=== PATIENT | male | born 1970 | race Caucasian/White ===

== ENCOUNTER 2017-02-10 14:40 | Emergency (ER) | payer SELFPAY ==
[~2017-02-10] VITALS: Ht 177.8 cm; Wt 88.6 kg
[~2017-02-10 14:40] MED LIST: ALEVE 220MG220 MG PO; CHOLESTEROL MED; IBU-2200 MG PO; LORTAB 5/500 501 TAB PO; PROSTATE MED
[2017-02-10 14:59] LABS: HEMATOCRIT 45.5 % (42.0-52.0); HEMOGLOBIN 15.8 g/dl (13.5-18.0); MEAN CELL VOLUME 93 fl (80.0-100.0); MEAN CORPUSCULAR HEMOGLOBIN 32 pg (27.0-31.0); MEAN CORPUSCULAR HGB CONC 35 g/dl (33.0-37.0); MEAN PLATELET VOLUME 10.8 fl (7.4-10.4); PLATELET COUNT 348 K/mm3 (130-400); RED BLOOD COUNT 4.92 M/mm3 (4.20-5.60); REDCELL DISTRIBUTION WIDTH-CV 12.7 % (11.5-14.5); WHITE BLOOD COUNT 17.1 K/mm3 (4.8-10.8)
[2017-02-10 15:01] LABS: ADD PATHOLOGY DIFF REVIEW NO
[2017-02-10 15:02] LABS: INR 1.1 (0.8-3.0); PROTHROMBIN TIME 12.4 SECONDS (9.7-12.8)
[2017-02-10 15:04] LABS: PARTIAL THROMBOPLASTIN TIME 32.5 SECONDS (26.0-37.0)
[2017-02-10 15:07] LABS: ADJUSTED CALCIUM 8.5 mg/dL (8.4-10.2); ALANINE AMINOTRANSFERASE 307 U/L (21-72); ALBUMIN 3.9 gm/dL (3.5-5.0); ALKALINE PHOSPHATASE 62 U/L (50-136); ANION GAP 20 mmol/L (7-16); BILIRUBIN,TOTAL 0.8 mg/dL (0.0-1.0); BLOOD UREA NITROGEN 9 mg/dL (9-20); CALCIUM 8.4 mg/dL (8.4-10.2); CARBON DIOXIDE 17 mmol/L (22-30); CHLORIDE 104 mmol/L (98-107); CREATINE KINASE 86 U/L (55-170); CREATININE, serum 1.18 mg/dL (0.66-1.25); GLUCOSE 193 mg/dL (74-106); SODIUM 141 mmol/L (137-145)
[2017-02-10 15:15] LABS: BAND 9 % (0-10); BASOPHIL 1 % (0-2); EOSINOPHIL 1 % (0-4); NEUTROPHILS 40 % (42.0-75.2); PLATELET ESTIMATE NORMAL (NORMAL); TOTAL CELLS COUNTED 100
[2017-02-10 15:19] LABS: B-TYPE NATRIURETIC PEPTIDE 1210 pg/mL (0-125)
[2017-02-10 15:26] LABS: TROPONIN-I < 0.012 ng/mL (0.000-0.034)
[2017-02-10 15:57] VITALS: BP 104/74; PULSE 87
== END 2017-02-10 15:35 | disposition short-term general hospital (02) ==
LOC: COL.ER 14:40
PROVIDERS: Emergency Medicine
DX: I46.9 Cardiac arrest, cause unspecified (principal); I10 Essential (primary) hypertension; F17.210 Nicotine dependence, cigarettes, uncomplicated; E78.5 Hyperlipidemia, unspecified
CPT/HCPCS: J0282; J1644; J7060

== ENCOUNTER 2018-01-08 14:37 | Emergency (ER) | payer MEDICAID ==
[~2018-01-08] VITALS: Ht 177.8 cm; Wt 96.6 kg
[2018-01-08 15:14] LABS: COLLECTION METHOD CLEAN CATCH
[2018-01-08 15:16] LABS: BASO # 0.1 (0.0-0.2); BASO % 0.6 % (0.0-2.0); EOS # 0.2 (0.0-0.7); EOS % 1.8 % (0-4.0); GRAN # 5.9 (1.4-6.5); GRAN % 71.7 % (42.2-75.2); HEMATOCRIT 43.1 % (42.0-52.0); HEMOGLOBIN 15.4 g/dl (13.5-18.0); LYMPH # 1.5 (1.2-3.4); LYMPH % 18.9 % (20.0-51.0); MEAN CELL VOLUME 88 fl (80.0-100.0); MEAN CORPUSCULAR HEMOGLOBIN 31 pg (27.0-31.0); MEAN CORPUSCULAR HGB CONC 36 g/dl (33.0-37.0); MEAN PLATELET VOLUME 10.7 fl (7.4-10.4); MONO # 0.6 (0.1-0.6); MONO % 6.9 % (1.7-9.3); PLATELET COUNT 242 K/mm3 (130-400); RED BLOOD COUNT 4.91 M/mm3 (4.20-5.60); REDCELL DISTRIBUTION WIDTH-CV 12.4 % (11.5-14.5)
[2018-01-08 15:19] LABS: PH 6 (5-8); SQUAMOUS EPITHELIAL None Seen /hpf; URINE APPEARANCE Clear; URINE BACTERIA None Seen /hpf; URINE BILIRUBIN Negative (NEGATIVE); URINE BLOOD Negative (NEGATIVE); URINE COLOR Yellow; URINE GLUCOSE Negative (NEGATIVE); URINE KETONE Negative (NEGATIVE); URINE LEUKOCYTE ESTERASE Negative (NEGATIVE); URINE NITRATE Negative (NEGATIVE); URINE PROTEIN(semi-quant) Negative (NEGATIVE); URINE RBC 0-2 /hpf; URINE UROBILINOGEN Negative (NEGATIVE)
[2018-01-08 15:26] LABS: ALANINE AMINOTRANSFERASE 51 U/L (21-72); ALBUMIN 4.4 gm/dL (3.5-5.0); ALKALINE PHOSPHATASE 60 U/L (50-136); ANION GAP 14 mmol/L (7-16); AST,SGOT 22 U/L (15-37); BILIRUBIN,TOTAL 0.5 mg/dL (0.0-1.0); BLOOD UREA NITROGEN 9 mg/dL (9-20); CALCIUM 9.2 mg/dL (8.4-10.2); CARBON DIOXIDE 26 mmol/L (22-30); CHLORIDE 104 mmol/L (98-107); CREATININE, serum 1.11 mg/dL (0.66-1.25); GLUCOSE 100 mg/dL (74-106); SODIUM 144 mmol/L (137-145); TOTAL PROTEIN 8.7 gm/dL (6.4-8.2)
[2018-01-08 15:27] LABS: TRICYCLIC ANTIDEPRESS URINE NEGATIVE
[2018-01-08 15:27] LABS: ALCOHOL(ethanol),MEDICAL < 10 mg/dL
[2018-01-08] MEDS ORDERED: ASPIRIN 81M81 MG/TA2 PO (19:03)
[2018-01-08] MEDS ORDERED: QBRELIS1 MG/1 ML PO (19:03)
[2018-01-08] MEDS ORDERED: LIPITOR 10MG10 MG PO (19:03)
[2018-01-08 23:15] VITALS: BP 145/86; PULSE 65; TEMP 98
== END 2018-01-08 23:20 ==
LOC: COL.ER 14:37
PROVIDERS: Family Medicine
DX: F32.9 Major depressive disorder, single episode, unspecified (principal); F91.8 Other conduct disorders; I25.10 Atherosclerotic heart disease of native coronary artery without angina pectoris; I25.2 Old myocardial infarction; Z95.810 Presence of automatic (implantable) cardiac defibrillator; Z79.82 Long term (current) use of aspirin

== ENCOUNTER 2018-06-06 19:51 | Inpatient (IN) | payer MEDICAID ==
[~2018-06-06] VITALS: Ht 177.8 cm; Wt 95.9 kg
[~2018-06-06 19:51] MED LIST changes: +ASPIRIN 81M81 MG/TA2 PO; +LIPITOR 10MG10 MG PO; +QBRELIS1 MG/1 ML PO
[2018-06-06] MEDS ORDERED: ZOLOFT 50MG50 MG PO (20:01)
[2018-06-06 20:10] LABS: BASO % 0.5 % (0.0-2.0); EOS # 0.3 (0.0-0.7); EOS % 3.8 % (0-4.0); GRAN # 4.8 (1.4-6.5); HEMATOCRIT 41.3 % (42.0-52.0); HEMOGLOBIN 14.6 g/dl (13.5-18.0); LYMPH # 2.4 (1.2-3.4); LYMPH % 29.3 % (20.0-51.0); MEAN CELL VOLUME 90 fl (80.0-100.0); MEAN CORPUSCULAR HEMOGLOBIN 32 pg (27.0-31.0); MEAN CORPUSCULAR HGB CONC 35 g/dl (33.0-37.0); MEAN PLATELET VOLUME 10.6 fl (7.4-10.4); MONO # 0.6 (0.1-0.6); MONO % 7.3 % (1.7-9.3); PLATELET COUNT 231 K/mm3 (130-400); REDCELL DISTRIBUTION WIDTH-CV 12.7 % (11.5-14.5)
[2018-06-06 20:15] LABS: INR 0.9 (0.8-3.0); PROTHROMBIN TIME 10.6 SECONDS (9.7-12.8)
[2018-06-06 20:18] LABS: PARTIAL THROMBOPLASTIN TIME 35.4 SECONDS (26.0-37.0)
[2018-06-06 20:21] LABS: ALANINE AMINOTRANSFERASE 53 U/L (21-72); ALKALINE PHOSPHATASE 67 U/L (50-136); ANION GAP 12 mmol/L (7-16); AST,SGOT 32 U/L (15-37); BILIRUBIN,TOTAL 0.4 mg/dL (0.0-1.0); BLOOD UREA NITROGEN 9 mg/dL (9-20); CARBON DIOXIDE 25 mmol/L (22-30); CHLORIDE 103 mmol/L (98-107); CREATININE, serum 0.87 mg/dL (0.66-1.25); GLUCOSE 112 mg/dL (74-106); POTASSIUM 3.6 mmol/L (3.4-5.0); SODIUM 140 mmol/L (137-145); TOTAL PROTEIN 7.5 gm/dL (6.4-8.2)
[2018-06-06 20:39] LABS: TROPONIN-I < 0.012 ng/mL (0.000-0.034)
[2018-06-06] MEDS ORDERED: REMERON 15M15 MG/TA1 PO (21:13)
[2018-06-06] MEDS ORDERED: COREG 6.256.25 MG/TA PO (21:14)
[2018-06-06] MEDS ORDERED: PRINIVIL40 MG PO (21:15)
[2018-06-06] MEDS ORDERED: PLAVIX 75MG TAB75 MG PO (21:16)
[2018-06-07] VITALS (7 sets, daily range): BP systolic 113–139; BP diastolic 67–84; PULSE 59–92; TEMP 98.1–98.5
[2018-06-07 00:58] LABS: PROTHROMBIN TIME 11.3 SECONDS (9.7-12.8)
[2018-06-07 05:00] LABS: BASO % 0.6 % (0.0-2.0); EOS # 0.3 (0.0-0.7); EOS % 4.6 % (0-4.0); GRAN # 3.1 (1.4-6.5); GRAN % 47.1 % (42.2-75.2); HEMATOCRIT 38.6 % (42.0-52.0); HEMOGLOBIN 13.4 g/dl (13.5-18.0); LYMPH # 2.7 (1.2-3.4); LYMPH % 41.1 % (20.0-51.0); MEAN CELL VOLUME 92 fl (80.0-100.0); MEAN CORPUSCULAR HEMOGLOBIN 32 pg (27.0-31.0); MEAN CORPUSCULAR HGB CONC 35 g/dl (33.0-37.0); MEAN PLATELET VOLUME 10.8 fl (7.4-10.4); MONO # 0.4 (0.1-0.6); MONO % 6.3 % (1.7-9.3); PLATELET COUNT 185 K/mm3 (130-400); RED BLOOD COUNT 4.22 M/mm3 (4.20-5.60); REDCELL DISTRIBUTION WIDTH-CV 12.8 % (11.5-14.5)
[2018-06-07 05:10] LABS: ALANINE AMINOTRANSFERASE 47 U/L (21-72); ALBUMIN 3.5 gm/dL (3.5-5.0); ALKALINE PHOSPHATASE 58 U/L (50-136); ANION GAP 10 mmol/L (7-16); AST,SGOT 24 U/L (15-37); BILIRUBIN,TOTAL 0.3 mg/dL (0.0-1.0); BLOOD UREA NITROGEN 8 mg/dL (9-20); CALCIUM 8.4 mg/dL (8.4-10.2); CARBON DIOXIDE 24 mmol/L (22-30); CHLORIDE 107 mmol/L (98-107); CHOLESTEROL 139 mg/dL (120-200); CHOLESTEROL RISK RATIO 5.7; CREATININE, serum 0.82 mg/dL (0.66-1.25); GLUCOSE 118 mg/dL (74-106); HDL CHOLESTEROL 24 mg/dL; LDL CHOLESTEROL 79 mg/dL; POTASSIUM 3.4 mmol/L (3.4-5.0); SODIUM 140 mmol/L (137-145); TOTAL PROTEIN 6.6 gm/dL (6.4-8.2); TRIGLYCERIDE 179 mg/dL
[2018-06-07 05:22] LABS: TROPONIN-I < 0.012 ng/mL (0.000-0.034)
[2018-06-07] MEDS ORDERED: ASPIRIN 32325 MG/TAB PO (12:49)
== END 2018-06-07 14:17 | disposition short-term general hospital (02) | DRG 311 ==
LOC: COL.ER 19:51 → MEDICAL 21:18 → COL.ER 21:18 → MEDICAL 21:18
PROVIDERS: Emergency Medicine; Nurse Practitioner Family
DX: I20.0 Unstable angina (principal); I50.22 Chronic systolic (congestive) heart failure; I11.0 Hypertensive heart disease with heart failure; I25.5 Ischemic cardiomyopathy; E78.5 Hyperlipidemia, unspecified; Z95.810 Presence of automatic (implantable) cardiac defibrillator; Z87.891 Personal history of nicotine dependence; Z95.5 Presence of coronary angioplasty implant and graft; E87.6 Hypokalemia; E83.42 Hypomagnesemia
CPT/HCPCS: 99223-AI; A9502; G0378; J1644; J2785; J3475; J7030

== ENCOUNTER 2018-06-28 14:05 | Emergency (ER) | payer MEDICAID ==
[~2018-06-28] VITALS: Ht 177.8 cm; Wt 93.2 kg
[~2018-06-28 14:05] MED LIST changes: +ASPIRIN 32325 MG/TAB PO; +COREG 6.256.25 MG/TA PO; +PLAVIX 75MG TAB75 MG PO; +PRINIVIL40 MG PO; +REMERON 15M15 MG/TA1 PO; +ZOLOFT 50MG50 MG PO
[2018-06-28 14:15] VITALS: TEMP 98.7
[2018-06-28 14:59] LABS: TRICYCLIC ANTIDEPRESS URINE NEGATIVE
[2018-06-28 15:26] LABS: BASO % 0.6 % (0.0-2.0); EOS # 0.3 (0.0-0.7); EOS % 3.7 % (0-4.0); GRAN # 4.3 (1.4-6.5); GRAN % 63.3 % (42.2-75.2); HEMATOCRIT 41.7 % (42.0-52.0); HEMOGLOBIN 14.8 g/dl (13.5-18.0); LYMPH # 1.8 (1.2-3.4); LYMPH % 25.7 % (20.0-51.0); MEAN CELL VOLUME 89 fl (80.0-100.0); MEAN CORPUSCULAR HEMOGLOBIN 32 pg (27.0-31.0); MEAN CORPUSCULAR HGB CONC 36 g/dl (33.0-37.0); MEAN PLATELET VOLUME 10.3 fl (7.4-10.4); MONO # 0.5 (0.1-0.6); MONO % 6.6 % (1.7-9.3); PLATELET COUNT 211 K/mm3 (130-400); RED BLOOD COUNT 4.68 M/mm3 (4.20-5.60); REDCELL DISTRIBUTION WIDTH-CV 12.4 % (11.5-14.5)
[2018-06-28 15:39] LABS: ALANINE AMINOTRANSFERASE 37 U/L (21-72); ALBUMIN 4.1 gm/dL (3.5-5.0); ALKALINE PHOSPHATASE 61 U/L (50-136); ANION GAP 8 mmol/L (7-16); AST,SGOT 18 U/L (15-37); BILIRUBIN,TOTAL 0.5 mg/dL (0.0-1.0); BLOOD UREA NITROGEN 11 mg/dL (9-20); CARBON DIOXIDE 27 mmol/L (22-30); CHLORIDE 101 mmol/L (98-107); CREATININE, serum 0.97 mg/dL (0.66-1.25); GLUCOSE 104 mg/dL (74-106); POTASSIUM 3.9 mmol/L (3.4-5.0); SODIUM 136 mmol/L (137-145); TOTAL PROTEIN 7.5 gm/dL (6.4-8.2)
[2018-06-28 15:45] LABS: ACETAMINOPHEN < 10 ug/mL (10-30); ALCOHOL(ethanol),MEDICAL < 10 mg/dL; SALICYLATE < 1.0 mg/dL
[2018-06-28] MEDS ORDERED: ZESTRIL40 MG PO (16:11)
[2018-06-28] MEDS ORDERED: LIPITOR 80MG80 MG PO (16:11)
[2018-06-28] MEDS ORDERED: PLAVIX 75MG TAB75 MG PO (16:11)
[2018-06-28] MEDS ORDERED: COREG 6.256.25 MG/TA PO (16:12)
[2018-06-28] MEDS ORDERED: ASPIRIN E.C. 8181 MG PO (16:13)
[2018-06-28] MEDS ORDERED: NITROSTAT0.4 MG/TAB SL (16:13)
[2018-06-28] MEDS ORDERED: REMERON 15M15 MG/TA1 PO (16:14)
[2018-06-28 21:15] VITALS: BP 140/85; PULSE 64
== END 2018-06-28 21:15 | disposition short-term general hospital (02) ==
LOC: COL.ER 14:05
PROVIDERS: Nurse Practitioner
DX: F32.9 Major depressive disorder, single episode, unspecified (principal); R45.851 Suicidal ideations; I25.2 Old myocardial infarction; Z87.891 Personal history of nicotine dependence; Z79.82 Long term (current) use of aspirin; Z95.0 Presence of cardiac pacemaker; Z95.5 Presence of coronary angioplasty implant and graft

== ENCOUNTER → 2018-07-11 | Emergency (ER) | payer MEDICAID ==
[~2018-07-11] VITALS: Ht 177.8 cm; Wt 91.4 kg
[~2018-07-11] MED LIST changes: +ASPIRIN E.C. 8181 MG PO; +LIPITOR 80MG80 MG PO; +NITROSTAT0.4 MG/TAB SL; +ZESTRIL40 MG PO; +ZOLOFT 100MG100 MG PO
[2018-07-11 17:43] LABS: BASO # 0.1 (0.0-0.2); BASO % 0.5 % (0.0-2.0); EOS # 0.3 (0.0-0.7); GRAN # 6.4 (1.4-6.5); HEMATOCRIT 44.8 % (42.0-52.0); HEMOGLOBIN 15.8 g/dl (13.5-18.0); LYMPH # 2.2 (1.2-3.4); LYMPH % 23.1 % (20.0-51.0); MEAN CELL VOLUME 89 fl (80.0-100.0); MEAN CORPUSCULAR HEMOGLOBIN 31 pg (27.0-31.0); MEAN CORPUSCULAR HGB CONC 35 g/dl (33.0-37.0); MEAN PLATELET VOLUME 10.3 fl (7.4-10.4); MONO # 0.7 (0.1-0.6); PLATELET COUNT 242 K/mm3 (130-400); RED BLOOD COUNT 5.06 M/mm3 (4.20-5.60); REDCELL DISTRIBUTION WIDTH-CV 12.3 % (11.5-14.5)
[2018-07-11 17:53] LABS: ALANINE AMINOTRANSFERASE 81 U/L (21-72); ALBUMIN 4.6 gm/dL (3.5-5.0); ALKALINE PHOSPHATASE 75 U/L (50-136); ANION GAP 10 mmol/L (7-16); AST,SGOT 42 U/L (15-37); BILIRUBIN,TOTAL 0.6 mg/dL (0.0-1.0); BLOOD UREA NITROGEN 15 mg/dL (9-20); CALCIUM 9.1 mg/dL (8.4-10.2); CARBON DIOXIDE 25 mmol/L (22-30); CHLORIDE 105 mmol/L (98-107); CREATININE, serum 1.01 mg/dL (0.66-1.25); GLUCOSE 86 mg/dL (74-106); SODIUM 140 mmol/L (137-145); TOTAL PROTEIN 8.3 gm/dL (6.4-8.2)
[2018-07-11 17:54] LABS: COLLECTION METHOD CLEAN CATCH
[2018-07-11 17:59] LABS: MUCOUS Present /lpf; PH 5 (5-8); SQUAMOUS EPITHELIAL 0-2 /hpf; URINE APPEARANCE Clear; URINE BACTERIA None Seen /hpf; URINE BILIRUBIN Negative (NEGATIVE); URINE BLOOD Negative (NEGATIVE); URINE COLOR Yellow; URINE GLUCOSE Negative (NEGATIVE); URINE KETONE Negative (NEGATIVE); URINE LEUKOCYTE ESTERASE Negative (NEGATIVE); URINE NITRATE Negative (NEGATIVE); URINE PROTEIN(semi-quant) Negative (NEGATIVE); URINE RBC None Seen /hpf; URINE UROBILINOGEN Negative (NEGATIVE)
[2018-07-11 18:03] LABS: ACETAMINOPHEN < 10 ug/mL (10-30); ALCOHOL(ethanol),MEDICAL < 10 mg/dL; SALICYLATE < 1.0 mg/dL
[2018-07-11 18:12] LABS: TRICYCLIC ANTIDEPRESS URINE NEGATIVE
[2018-07-11 23:23] VITALS: BP 108/67; PULSE 66; TEMP 99.1
== END ==
LOC: COL.ER 17:05
PROVIDERS: Family Medicine
DX: F32.9 Major depressive disorder, single episode, unspecified (principal); I25.10 Atherosclerotic heart disease of native coronary artery without angina pectoris; Z79.02 Long term (current) use of antithrombotics/antiplatelets; Z79.82 Long term (current) use of aspirin

== ENCOUNTER 2018-09-22 15:56 | Emergency (ER) | payer MEDICAID ==
[~2018-09-22] VITALS: Ht 177.8 cm; Wt 87.3 kg
[2018-09-22 16:30] LABS: COLLECTION METHOD CLEAN CATCH
[2018-09-22 16:52] LABS: PH 7 (5-8); SQUAMOUS EPITHELIAL 0-2 /hpf; URINE APPEARANCE Clear; URINE BACTERIA None Seen /hpf; URINE BILIRUBIN Negative (NEGATIVE); URINE BLOOD Negative (NEGATIVE); URINE COLOR Yellow; URINE GLUCOSE Negative (NEGATIVE); URINE KETONE Negative (NEGATIVE); URINE LEUKOCYTE ESTERASE Negative (NEGATIVE); URINE NITRATE Negative (NEGATIVE); URINE PROTEIN(semi-quant) Negative (NEGATIVE); URINE RBC 0-2 /hpf; URINE UROBILINOGEN Negative (NEGATIVE)
[2018-09-22 17:04] LABS: BASO # 0.1 (0.0-0.2); BASO % 0.6 % (0.0-2.0); EOS # 0.4 (0.0-0.7); EOS % 4.9 % (0-4.0); GRAN % 65.1 % (42.2-75.2); HEMATOCRIT 43.2 % (42.0-52.0); HEMOGLOBIN 14.9 g/dl (13.5-18.0); LYMPH # 1.8 (1.2-3.4); LYMPH % 23.1 % (20.0-51.0); MEAN CELL VOLUME 91 fl (80.0-100.0); MEAN CORPUSCULAR HEMOGLOBIN 31 pg (27.0-31.0); MEAN CORPUSCULAR HGB CONC 35 g/dl (33.0-37.0); MEAN PLATELET VOLUME 11.3 fl (7.4-10.4); MONO # 0.5 (0.1-0.6); PLATELET COUNT 187 K/mm3 (130-400); RED BLOOD COUNT 4.76 M/mm3 (4.20-5.60); REDCELL DISTRIBUTION WIDTH-CV 13.2 % (11.5-14.5)
[2018-09-22 17:05] LABS: TRICYCLIC ANTIDEPRESS URINE NEGATIVE
[2018-09-22 17:11] LABS: ALANINE AMINOTRANSFERASE 43 U/L (21-72); ALBUMIN 4.1 gm/dL (3.5-5.0); ALKALINE PHOSPHATASE 75 U/L (50-136); ANION GAP 5 mmol/L (7-16); AST,SGOT 24 U/L (15-37); BILIRUBIN,TOTAL 0.5 mg/dL (0.0-1.0); BLOOD UREA NITROGEN 8 mg/dL (9-20); CALCIUM 9.3 mg/dL (8.4-10.2); CARBON DIOXIDE 29 mmol/L (22-30); CHLORIDE 108 mmol/L (98-107); CREATININE, serum 0.94 mg/dL (0.66-1.25); GLUCOSE 105 mg/dL (74-106); POTASSIUM 3.8 mmol/L (3.4-5.0); SODIUM 141 mmol/L (137-145); TOTAL PROTEIN 7.3 gm/dL (6.4-8.2)
[2018-09-22 17:14] LABS: ACETAMINOPHEN < 10 ug/mL (10-30); ALCOHOL(ethanol),MEDICAL < 10 mg/dL; SALICYLATE < 1.0 mg/dL
[2018-09-23 08:56] VITALS: BP 113/66; PULSE 61; TEMP 97.4
== END 2018-09-23 09:30 ==
LOC: COL.ER 15:56
PROVIDERS: Emergency Medicine
DX: R45.851 Suicidal ideations (principal); F32.9 Major depressive disorder, single episode, unspecified; I25.10 Atherosclerotic heart disease of native coronary artery without angina pectoris; I10 Essential (primary) hypertension; F17.210 Nicotine dependence, cigarettes, uncomplicated; F12.10 Cannabis abuse, uncomplicated; Z95.0 Presence of cardiac pacemaker; Z95.5 Presence of coronary angioplasty implant and graft; Z79.02 Long term (current) use of antithrombotics/antiplatelets; Z79.82 Long term (current) use of aspirin

== ENCOUNTER 2018-11-18 02:00 | Emergency (ER) | payer MEDICAID | END 2018-11-18 18:26 | LOC: COL.ER 02:00 | DX: R45.851 Suicidal ideations (principal); F32.9 Major depressive disorder, single episode, unspecified; I25.10 Atherosclerotic heart disease of native coronary artery without angina pectoris; Z79.02 Long term (current) use of antithrombotics/antiplatelets; Z79.82 Long term (current) use of aspirin ==

== ENCOUNTER 2018-12-10 21:00 | Emergency (ER) | payer MEDICAID ==
[~2018-12-10] VITALS: Ht 177.8 cm; Wt 90.9 kg
[2018-12-10 21:05] VITALS: TEMP 98.6
[2018-12-10 21:31] LABS: COLLECTION METHOD CLEAN CATCH
[2018-12-10 21:37] LABS: BASO % 0.6 % (0.0-2.0); EOS # 0.3 (0.0-0.7); EOS % 4.2 % (0-4.0); GRAN % 60.5 % (42.2-75.2); HEMATOCRIT 46.4 % (42.0-52.0); HEMOGLOBIN 16.3 g/dl (13.5-18.0); LYMPH # 1.7 (1.2-3.4); LYMPH % 26.1 % (20.0-51.0); MEAN CELL VOLUME 89 fl (80.0-100.0); MEAN CORPUSCULAR HEMOGLOBIN 31 pg (27.0-31.0); MEAN CORPUSCULAR HGB CONC 35 g/dl (33.0-37.0); MEAN PLATELET VOLUME 10.3 fl (7.4-10.4); MONO # 0.6 (0.1-0.6); MONO % 8.4 % (1.7-9.3); PLATELET COUNT 225 K/mm3 (130-400); RED BLOOD COUNT 5.23 M/mm3 (4.20-5.60); REDCELL DISTRIBUTION WIDTH-CV 12.6 % (11.5-14.5)
[2018-12-10 21:39] LABS: PH 6 (5-8); SQUAMOUS EPITHELIAL None Seen /hpf; URINE APPEARANCE Clear; URINE BACTERIA None Seen /hpf; URINE BILIRUBIN Negative (NEGATIVE); URINE BLOOD Negative (NEGATIVE); URINE COLOR Yellow; URINE GLUCOSE Negative (NEGATIVE); URINE KETONE Negative (NEGATIVE); URINE LEUKOCYTE ESTERASE Negative (NEGATIVE); URINE NITRATE Negative (NEGATIVE); URINE PROTEIN(semi-quant) Negative (NEGATIVE); URINE RBC 0-2 /hpf; URINE UROBILINOGEN Negative (NEGATIVE)
[2018-12-10 21:43] LABS: ALANINE AMINOTRANSFERASE 33 U/L (21-72); ALBUMIN 4.4 gm/dL (3.5-5.0); ALKALINE PHOSPHATASE 73 U/L (50-136); ANION GAP 9 mmol/L (7-16); AST,SGOT 26 U/L (15-37); BILIRUBIN,TOTAL 0.5 mg/dL (0.0-1.0); BLOOD UREA NITROGEN 10 mg/dL (9-20); CALCIUM 9.4 mg/dL (8.4-10.2); CARBON DIOXIDE 27 mmol/L (22-30); CHLORIDE 105 mmol/L (98-107); CREATININE, serum 1.01 mg/dL (0.66-1.25); GLUCOSE 102 mg/dL (74-106); POTASSIUM 3.9 mmol/L (3.4-5.0); SODIUM 140 mmol/L (137-145); TOTAL PROTEIN 8.1 gm/dL (6.4-8.2)
[2018-12-10 21:47] LABS: ACETAMINOPHEN < 10 ug/mL (10-30); ALCOHOL(ethanol),MEDICAL < 10 mg/dL; SALICYLATE < 1.0 mg/dL
[2018-12-10 21:50] LABS: TRICYCLIC ANTIDEPRESS URINE NEGATIVE
[2018-12-11] MEDS ORDERED: ABILIFY2 MG (05:28)
[2018-12-11 12:15] VITALS: BP 120/71; PULSE 66
== END 2018-12-11 12:18 ==
LOC: COL.ER 21:00
PROVIDERS: Family Medicine
DX: F32.9 Major depressive disorder, single episode, unspecified (principal); I42.9 Cardiomyopathy, unspecified; I10 Essential (primary) hypertension; F17.210 Nicotine dependence, cigarettes, uncomplicated; Z95.0 Presence of cardiac pacemaker; Z95.5 Presence of coronary angioplasty implant and graft

== ENCOUNTER 2019-03-30 17:46 | Observation (INO) | payer MEDICAID ==
[~2019-03-30] VITALS: Ht 177.8 cm; Wt 89.5 kg
[~2019-03-30 17:46] MED LIST changes: +ABILIFY2 MG
[2019-03-30 18:17] LABS: BASO # 0.1 (0.0-0.2); BASO % 0.4 % (0.0-2.0); EOS # 0.3 (0.0-0.7); EOS % 1.8 % (0-4.0); GRAN # 11.1 (1.4-6.5); GRAN % 77.3 % (42.2-75.2); LYMPH # 1.8 (1.2-3.4); LYMPH % 12.3 % (20.0-51.0); MEAN CELL VOLUME 91 fl (80.0-100.0); MEAN CORPUSCULAR HEMOGLOBIN 32 pg (27.0-31.0); MEAN CORPUSCULAR HGB CONC 35 g/dl (33.0-37.0); MEAN PLATELET VOLUME 10.9 fl (7.4-10.4); MONO # 1.1 (0.1-0.6); MONO % 7.9 % (1.7-9.3); PLATELET COUNT 248 K/mm3 (130-400); RED BLOOD COUNT 5.05 M/mm3 (4.20-5.60); REDCELL DISTRIBUTION WIDTH-CV 13.1 % (11.5-14.5)
[2019-03-30 18:33] LABS: ALBUMIN 4.3 gm/dL (3.5-5.0); BILIRUBIN,TOTAL 0.7 mg/dL (0.0-1.0); CALCIUM 9.3 mg/dL (8.4-10.2); CREATININE, serum 0.94 (0.66-1.25); POTASSIUM 3.8 mmol/L (3.4-5.0); TOTAL PROTEIN 8.3 gm/dL (6.4-8.2)
[2019-03-30 18:57] LABS: C-REACTIVE PROTEIN 14.9 mg/dL (0.0-0.9)
[2019-03-30 21:00] VITALS: BP 145/85; PULSE 80; TEMP 99.5
[2019-03-30 21:04] VITALS: BP 145/85; PULSE 80; TEMP 99.5
--- NOTE | 2019-03-30 22:00 | NUR ---
PT ADMITTED TO [facility] 322-2 WITH ESOPHAGEAL ABCESS, DRAINED IN E.D. BY ENT SPECIALIST. SEE 5 PAGE ASSESSMENT.
--- NOTE | 2019-03-30 23:33 | NUR ---
PT GIVEN SOUP. HE HAD NO PROBLEMS EATING/SWALLOWING.
[2019-03-31 00:35] VITALS: BP 125/69; PULSE 66; TEMP 98.3
--- NOTE | 2019-03-31 04:27 | NUR ---
PT SLEEPING. NO NEEDS VOICED. UP INDEPENDENTLY TO TOILET.
[2019-03-31 05:02] VITALS: BP 127/82; PULSE 67; TEMP 97.3
[2019-03-31 08:25] VITALS: BP 141/85; PULSE 69; TEMP 97.8
--- NOTE | 2019-03-31 10:30 | NUR ---
Patient has been resting comfortably at this time. He continues to have some pain to his throat and neck. Denies nausea. Discussed eating foods that are easy to swallow. Discussed antibiotics ordered. No other changes at this time. Call light within reach.
[2019-03-31 11:39] VITALS: BP 131/71; PULSE 80; TEMP 98.3
--- NOTE | 2019-03-31 14:16 | NUR ---
SW met with patient to discuss discharge planning. Patient lives independently. His PCP was dr buenrostro but he will be switching to someone else in the same clinic he just doesn't know who. Patient also obtains medications from [facility]. Patient reports he does have a DPOA completed that he did at [facility] and his daughter Sony is listed. Patient plans on dc home today with no unmet discharge needs.
[2019-03-31 16:04] VITALS: BP 125/64; PULSE 70; TEMP 98.1
[2019-03-31] MEDS ORDERED: CLEOCIN HCL300 MG PO (16:30)
--- NOTE | 2019-03-31 17:20 | NUR ---
Patient is discharging home. Discharge instructions discussed with patient. No questions verbalized. Explained he has a prescription to moss picker at [facility] pharmacy. Explained this is his antibiotic. IV discontinued. Copies of discharge instructions sent with patient. Patient is driving himself home, he has not had any narcotics. No other changes at this time. Patient is walking out with Yi CONTRERAS.
== END 2019-03-31 17:20 | disposition home or self-care (01) ==
LOC: COL.ER 17:46 → SURG 20:15
PROVIDERS: Nurse Practitioner; ADMIT Student in an Organized Health Care Education/Training Program
DX: J36 Peritonsillar abscess (principal); I25.2 Old myocardial infarction; I10 Essential (primary) hypertension; E78.5 Hyperlipidemia, unspecified; F32.9 Major depressive disorder, single episode, unspecified; F17.210 Nicotine dependence, cigarettes, uncomplicated; F41.9 Anxiety disorder, unspecified; Z95.5 Presence of coronary angioplasty implant and graft; Z95.0 Presence of cardiac pacemaker; Z79.02 Long term (current) use of antithrombotics/antiplatelets; Z79.82 Long term (current) use of aspirin; Z82.49 Family history of ischemic heart disease and other diseases of the circulatory system
CPT/HCPCS: G0378; J1100; J1170; J3480; J7030; Q9967

== ENCOUNTER 2019-05-13 13:22 | Emergency (ER) | payer MEDICAID ==
[~2019-05-13] VITALS: Ht 177.8 cm; Wt 90.9 kg
[~2019-05-13 13:22] MED LIST changes: +CLEOCIN HCL300 MG PO
[2019-05-13 13:25] VITALS: TEMP 97.9
[2019-05-13 13:42] LABS: BASO % 0.5 % (0.0-2.0); EOS # 0.3 (0.0-0.7); EOS % 3.6 % (0-4.0); GRAN # 5.3 (1.4-6.5); HEMOGLOBIN 15.6 g/dl (13.5-18.0); LYMPH # 2.3 (1.2-3.4); LYMPH % 26.6 % (20.0-51.0); MEAN CELL VOLUME 90 fl (80.0-100.0); MEAN CORPUSCULAR HEMOGLOBIN 32 pg (27.0-31.0); MEAN CORPUSCULAR HGB CONC 36 g/dl (33.0-37.0); MEAN PLATELET VOLUME 10.8 fl (7.4-10.4); MONO # 0.6 (0.1-0.6); MONO % 7.1 % (1.7-9.3); PLATELET COUNT 228 K/mm3 (130-400); RED BLOOD COUNT 4.88 M/mm3 (4.20-5.60); REDCELL DISTRIBUTION WIDTH-CV 13.2 % (11.5-14.5)
[2019-05-13 13:49] LABS: PROTHROMBIN TIME 11.3 SECONDS (9.7-12.8)
[2019-05-13 13:52] LABS: PARTIAL THROMBOPLASTIN TIME 33.9 SECONDS (26.0-37.0)
[2019-05-13 13:53] LABS: ALANINE AMINOTRANSFERASE 35 U/L (21-72); ALBUMIN 4.5 gm/dL (3.5-5.0); ALKALINE PHOSPHATASE 67 U/L (50-136); ANION GAP 11 mmol/L (7-16); AST,SGOT 32 U/L (15-37); BILIRUBIN,TOTAL 0.7 mg/dL (0.0-1.0); BLOOD UREA NITROGEN 10 mg/dL (9-20); CALCIUM 9.5 mg/dL (8.4-10.2); CARBON DIOXIDE 23 mmol/L (22-30); CHLORIDE 107 mmol/L (98-107); CREATININE, serum 1.08 (0.66-1.25); GLUCOSE 95 mg/dL (74-106); POTASSIUM 3.9 mmol/L (3.4-5.0); SODIUM 141 mmol/L (137-145)
[2019-05-13 14:09] LABS: TROPONIN-I < 0.012 ng/mL (0.000-0.035)
[2019-05-13 17:34] VITALS: BP 108/68; PULSE 67
== END 2019-05-13 17:36 | disposition home or self-care (01) ==
LOC: COL.ER 13:22
PROVIDERS: Family Medicine
DX: R07.89 Other chest pain (principal); R55 Syncope and collapse; I25.10 Atherosclerotic heart disease of native coronary artery without angina pectoris; F17.210 Nicotine dependence, cigarettes, uncomplicated; Z79.02 Long term (current) use of antithrombotics/antiplatelets; Z79.82 Long term (current) use of aspirin
CPT/HCPCS: J7030

== ENCOUNTER 2021-08-12 06:43 | Day surgery (SDC) | payer MEDICARE ==
[~2021-08-12] VITALS: Ht 177.8 cm; Wt 91.9 kg
[2021-08-12] MEDS ORDERED: COZAAR 50MG50 MG/TAB PO (06:55)
[2021-08-12 07:15] VITALS: BP 137/99; PULSE 68; TEMP 98.8
[2021-08-12 08:25] VITALS: BP 131/93; PULSE 73; TEMP 97.5
--- NOTE | 2021-08-12 08:25 | NUR ---
Patient arrives to [facility] via cart, accompanied by [facility] RN Vee Osborne. He is alert and oriented. He ambulates to the restroom, voids, and returns to his room. Monitoring is applied - VSS on room air. PIV to TKO. He denies complaints or needs. He is offered and receives toast and a Sprite. Call light in reach.
[2021-08-12 08:40] VITALS: BP 150/85; PULSE 65
--- NOTE | 2021-08-12 08:40 | NUR ---
Patient has ate/drank - tolerating PO well. VSS on room air. Denies complaints or needs.
--- NOTE | 2021-08-12 08:52 | NUR ---
Dr. Valentino comes to the bedside and speaks with the patient.
[2021-08-12 08:55] VITALS: BP 139/90; PULSE 60
--- NOTE | 2021-08-12 09:11 | NUR ---
Patient has met discharge criteria. Discharge instructions are discussed. He denies any questions and verbalizes understanding. PIV is removed with catheter intact and hemostasis achieved. He changes to his clothing independently. He is escorted to the exit via wheelchair by staff. He is discharged to the care of his , who drives him home in a private vehicle at 0911.
== END 2021-08-12 09:11 | disposition home or self-care (01) ==
LOC: SDCO 06:43
DX: Z12.11 Encounter for screening for malignant neoplasm of colon (principal); D12.5 Benign neoplasm of sigmoid colon; K63.5 Polyp of colon; I25.10 Atherosclerotic heart disease of native coronary artery without angina pectoris; I42.0 Dilated cardiomyopathy; I50.20 Unspecified systolic (congestive) heart failure; I49.01 Ventricular fibrillation; I11.0 Hypertensive heart disease with heart failure; I25.2 Old myocardial infarction; K21.9 Gastro-esophageal reflux disease without esophagitis; E78.5 Hyperlipidemia, unspecified; G47.33 Obstructive sleep apnea (adult) (pediatric); F32.A Depression, unspecified; F43.10 Post-traumatic stress disorder, unspecified; F17.210 Nicotine dependence, cigarettes, uncomplicated; Z95.0 Presence of cardiac pacemaker; Z79.82 Long term (current) use of aspirin; Z79.899 Other long term (current) drug therapy
CPT/HCPCS: J2704; J7120

== ENCOUNTER 2024-06-13 02:22 | Observation (INO) | payer BC ==
[~2024-06-13] VITALS: Ht 152.4 cm; Wt 199.8 kg
[2024-06-13] VITALS (9 sets, daily range): BP systolic 122–156; BP diastolic 71–81; PULSE 58–64; TEMP 97.6–98.1
[~2024-06-13 02:22] MED LIST changes: +COREG12.5 MG PO; +COZAAR 50MG50 MG/TAB PO
[2024-06-13 02:35] LABS: BASO % 0.3 % (0.0-2.0); EOS # 0.2 K/mm3 (0.0-0.7); GRAN # 7.3 K/mm3 (1.4-6.5); GRAN % 72.6 % (42.2-75.2); HEMATOCRIT 40.2 % (42.0-52.0); HEMOGLOBIN 14.1 g/dl (13.5-18.0); LYMPH # 1.8 K/mm3 (1.2-3.4); MEAN CELL VOLUME 96 fl (80.0-100.0); MEAN CORPUSCULAR HEMOGLOBIN 34 pg (27-31); MEAN CORPUSCULAR HGB CONC 35 g/dl (33.0-37.0); MONO # 0.7 K/mm3 (0.1-0.6); MONO % 6.8 % (1.7-9.3); PLATELET COUNT 189 K/mm3 (130-400); RED BLOOD COUNT 4.17 M/mm3 (4.20-5.60); REDCELL DISTRIBUTION WIDTH-CV 13.2 % (11.5-14.5)
[2024-06-13 02:57] LABS: ALBUMIN 3.5 g/dL (3.5-5.0); BILIRUBIN,TOTAL 0.9 mg/dL (0.2-1.2); CALCIUM 8.4 mg/dL (8.4-10.2); CREATININE, serum 1.6 mg/dL (0.72-1.25); MAGNESIUM 1.9 mg/dL (1.6-2.6); POTASSIUM 3.5 mEq/L (3.5-4.5); TOTAL PROTEIN 6.5 g/dl (6.2-8.1)
[2024-06-13 03:03] LABS: TROPONIN-I 0.016 ng/mL (0.00-0.033)
[2024-06-13] MEDS ORDERED: Ondansetron 4 MG/2 ML VIAL IV ONE (03:15)
[2024-06-13] MEDS ORDERED: NS 1,000 ML IV ONE (03:45)
--- NOTE | 2024-06-13 05:58 | NUR ---
pt rec from ed
[2024-06-13] MEDS ORDERED: LR 1,000 ML IV SCH (07:00)
[2024-06-13] MEDS ORDERED: Clopidogrel 75 MG TAB PO SCH (09:00)
[2024-06-13] MEDS ORDERED: Atorvastatin 80 MG TAB PO SCH (09:00)
--- NOTE | 2024-06-13 09:42 | NUR ---
Medical Service Representative met with patient and his daughter, Demetrius at bedside to complete initial intake. Patient lives in [place], [place] with his , Alina (ph#[phone]) and was seeing Dr. Cottrell for primary care. Patient stated he was assigned a new provider but can't remember the name. Patient gets medications from [facility] and does not use any DME. Patient is independent with ADLS and plans to return home at time of discharge. Patient does not have DPOA-HC and was not interested in completing one at this time. Discharge Plan: Home
--- NOTE | 2024-06-13 11:30 | NUR ---
PATIENT ALERT AND ORIENTED X4. VSS. PATIENT HERE FOR SYNCOPE. PATIENT DENIES ANY DIZZINESS OR LIGHTHEADEDNESS. PATIENT DENIES ANY PAIN. AM MEDS ADMINISTERED. IV TO LEFT AC WITH LR RUNNING AT 100ML/HOUR. PATIENT DENIES ANY FURTHER NEEDS. CALL LIGHT IN REACH.
--- NOTE | 2024-06-13 12:01 | NUR ---
D: Cath Lab Radiology Technician stopped by room on rounds. A: Pt was resting and content. No needs right now. P: Cath Lab Radiology Technician informed pt that if he needed anything from the senior accounting specialist area to let his nurse know. Cath Lab Radiology Technician will follow up as needed.
--- NOTE | 2024-06-13 19:41 | NUR ---
PATIENT LAYING IN BED AOX4. IV IN LEFT AC. CALL LIGHT WITHIN REACH. NO ACUTE EVENTS.
[2024-06-13] MEDS ORDERED: Acetaminophen 500 MG TAB PO PRN (21:15)
[2024-06-14 01:00] VITALS: BP_SYST 148
[2024-06-14 04:00] VITALS: BP 143/91; PULSE 61; TEMP 97.6
[2024-06-14 05:00] VITALS: BP_SYST 143
[2024-06-14 08:25] VITALS: BP 138/80; PULSE 61; TEMP 98.1
[2024-06-14 09:00] VITALS: BP_SYST 138
--- NOTE | 2024-06-14 10:01 | NUR ---
PATIENT ALERT AND ORIENTED X4. VSS. PATIENT HERE FOR SYNCOPE. LACERATION TO LEFT EYEBROW, SUTURES INTACT. GAUZE/PAPER TAPE APPLIED. IV TO LEFT AC WITH LR RUNNING AT 100ML/HOUR. PATIENT DENIES ANY PAIN. PATIENT TOLERATING PO. NO C/O SYNOCOPE, DIZZINESS, OR LIGHTHEADEDNESS. NO FURTHER NEEDS. CALL LIGHT IN REACH.
--- NOTE | 2024-06-14 10:57 | NUR ---
TELE REPORTED A 5 BEAT RUN OF VTACH, PATIENT HR INCREASED TO APPRIXMATELY 91. REPORTED THIS TO DR. FREY. MONITORING FOR NOW.
[2024-06-14 12:20] VITALS: BP 131/81; PULSE 60; TEMP 98.5
--- NOTE | 2024-06-14 12:35 | NUR ---
Data: Patient declined spiritual care visit offered during Uranium Processing Supervisor rounds. Patient watching [employer] football game. Assessment: None. Patient declined. Plan of Care: Chaplains will remain available as needed/requested while Patient is admitted to this hospital.
--- NOTE | 2024-06-14 14:25 | NUR ---
DISCHARGE INSTRUCTIONS PROVIDED. PATIENT EDUCATION GIVEN. IV DC'D. FOLLOW UP APPOINTMENTS DISCUSSED. MEDICATIONS REVIEWED. PATIENT DENIES ANY QUESTIONS OR CONCERNS.
--- NOTE | 2024-06-14 14:42 | NUR ---
PATIENT ESCORTED OUT WITH BELONGINGS
== END 2024-06-14 14:43 | disposition home or self-care (01) ==
LOC: COL.ER 02:22 → SURG 02:23 → COL.ER 04:07 → SURG 06-14 14:43
PROVIDERS: Emergency Medicine; ADMIT Internal Medicine
DX: N17.9 Acute kidney failure, unspecified (principal); S01.112A Laceration without foreign body of left eyelid and periocular area, initial encounter; I25.10 Atherosclerotic heart disease of native coronary artery without angina pectoris; F17.210 Nicotine dependence, cigarettes, uncomplicated; W19.XXXA Unspecified fall, initial encounter; Y93.89 Activity, other specified; Y92.002 Bathroom of unspecified non-institutional (private) residence as the place of occurrence of the external cause; Z95.810 Presence of automatic (implantable) cardiac defibrillator; Z95.5 Presence of coronary angioplasty implant and graft; Z79.82 Long term (current) use of aspirin; Z79.899 Other long term (current) drug therapy; Z79.02 Long term (current) use of antithrombotics/antiplatelets
CPT/HCPCS: G0378; J2405; J7030; J7120